=== PATIENT | male | born 1955 | race Caucasian/White ===

== ENCOUNTER → 2016-12-20 | Outpatient (CLI) | payer BC ==
[~2016-12-20] MED LIST: CLR10 PO; OMEP20CA59 PO
--- NOTE | 2016-12-27 11:36 | CODING QUERY MEDICAL NECESSITY ---
CQSUPPORTING DIAGNOSIS NEEDED A supporting diagnosis is required for the test/procedure performed on this patient in order for us to be reimbursed by the patient's insurance. Please provide a supporting diagnosis for the following test/procedure listed below next to the test name along with your signature. *If there is no additional diagnosis for this patient that would support the following test/procedure please document that below next to the test/procedure. Test(s)/Procedure(s) that require a supporting diagnosis: DOS 12/20/16 PROSTATE SPECIFIC TEST Provider Signature: Date: Thank you Maisha Gonzalez [employer] Information Management Once completed, please kindly fax back to [phone] For questions please call [phone]
== END | disposition home or self-care (01) ==
LOC: C.LAB 15:52
PROVIDERS: ATTEND Urology
DX: N52.9 Male erectile dysfunction, unspecified (principal); N40.1 Benign prostatic hyperplasia with lower urinary tract symptoms

== ENCOUNTER → 2017-05-26 | Outpatient (CLI) | payer BC ==
--- NOTE | 2017-06-15 12:50 | CODING QUERY NO DIAGNOSIS ---
TREATMENT RENDERED WITHOUT A DIAGNOSIS To promote full compliance with coding requirements relating to patient care, physician participation is requested in all cases of cooker pie filling uncertainty. Please assist us with providing a diagnosis/symptom for the test(s) below: A diagnosis/symptom was not documented on your Order. A valid diagnosis/symptom is required to bill all insurances. Please remember that we are unable to code a diagnosis of rule out, probable, possible, questionable, or suspected. Tests that require a diagnosis for date of service 05/26/17: * Left Maxilla Tissue Biopsy DIAGNOSIS: Provider Signature: Date: Thank you Deborah Becerra [employer] Once completed, please kindly fax back to [phone] For questions please call [phone]
== END | disposition home or self-care (01) ==
LOC: C.PATHSPEC 17:27
PROVIDERS: ATTEND Dentist Oral and Maxillofacial Surgery
DX: K04.8 Radicular cyst (principal)

== ENCOUNTER → 2017-07-28 | Outpatient (CLI) | payer OTHER ==
--- NOTE | 2017-07-28 08:53 | DIAGNOSTIC IMAGING REPORT ---
TWO VIEW CHEST CLINICAL HISTORY: Chest congestion. FINDINGS: PA and lateral chest radiographs are compared to study dated 12/20/2013. The cardiomediastinal silhouette is unremarkable. Chronic interstitial thickening is similar to previous. No airspace consolidation or pleural effusion is identified. There is no pneumothorax. The bony thorax appears intact. IMPRESSION: No active disease in the chest. Electronically signed by: Sinan Carias M.D. 07/28/2017 8:51 AM Dictated Date/Time: 07/28/2017 8:51 AM
== END | disposition home or self-care (01) ==
LOC: C.RAD 08:12
PROVIDERS: ATTEND Internal Medicine
DX: R05 Cough (principal); R09.89 Other specified symptoms and signs involving the circulatory and respiratory systems

== ENCOUNTER 2020-08-25 20:10 | Observation (INO) ==
[2020-08-25] MEDS ORDERED: ASPIRIN CHEW 324 MG PO STA (20:25)
--- NOTE | 2020-08-25 20:32 | Emergency Department Note ---
Impression & Plan Chest pain on exertion ED Provider Note NAME: ERICK SMITH AGE: 65 SEX: M : 1955 ARRIVES VIA: Walk-In INFORMANT: Patient, ED PROVIDER(S): Luis Souza DO CHIEF COMPLAINT: Chest pain HPI: The patient is a 65-year-old male who presented to the emergency department for an evaluation of chest pain. The patient describes left-sided chest pain which he describes as a pressure. He states the pain has been intermittent and started today. He states the pain is currently not present. He states at the time when he was having the pain he did have some shortness of breath. The patient states that his son is an emergency medicine physician and asked him to start walking up and down stairs. He stated initially he did not have any problems walking up and down stairs but started having chest discomfort on the left while he was ascending the stairs. He denies having any diaphoresis. He denies having any lower extremity swelling or pain. He denies having any cough. Throughout the day he was having the pain as well and thought it could be from reflux. His significant other gave him some antacids which did not significantly change the pain. ROS: See above HPI for pertinent positives & negatives. A total of 10 systems reviewed and were otherwise negative. PAST MEDICAL HISTORY: See Below PAST SURGICAL HISTORY: See Below FAMILY HISTORY: See Below SOCIAL HISTORY: See Below HOME MEDICATIONS: See Below ALLERGIES: See Below VITALS: See Below PHYSICAL EXAMINATION: GENERAL: Patient is awake alert in no acute distress patient is resting comfortably and showing no signs of anxiety EYES: The conjunctivae are clear. The pupils are round and reactive. EARS, NOSE, MOUTH AND THROAT: The nose is without any evidence of any deformity. NECK: The neck is nontender and supple. RESPIRATORY: Normal respiratory effort is noted there is no evidence of wheezing rhonchi or rales CARDIOVASCULAR: Regular rate and rhythm noted there no murmurs rubs or gallops normal S1 normal S2. GASTROINTESTINAL: The abdomen is soft. Abdomen is nontender. MUSCULOSKELETAL/EXTREMITIES: There is no evidence of gross deformity full range of motion is noted in the hips and shoulders. SKIN: There is no obvious evidence of any rash. There are no petechiae, pallor or cyanosis noted. NEUROLOGIC: Patient is awake alert and oriented x3. MEDICAL DECISION MAKING: The patient is a 65-year-old male who presented to the emergency department for an evaluation of chest pain. The patient has been having episodes of intermittent chest pain through the day. He started to notice the chest pain with exertion. I discussed the patient's laboratory and radiographic studies with him. I also discussed the limitations of the emergency department work-up for chest pain with him. Given the patient's exertional symptoms I do feel that he may be high risk. He was treated with aspirin in the emergency department. Because of the nature of his presentation I do feel he may require further inpatient management. For this reason I will discuss his case with the on-call [facility] hospitalist. Triage Nursing notes reviewed. Prior medical records reviewed Vital Signs: reviewed and remarkable for no significant abnormalities Differential diagnosis: Cardiac ischemia, aortic dissection, pulmonary embolism, pneumothorax, pneumonia, pericarditis, myocarditis, esophageal rupture, GERD, cholecystitis, pancreatitis, musculoskeletal, as well as other pathologies. ER treatment provided: See below Diagnostics interpreted by me: ECG: EKG was obtained in the emergency department. My interpretation is normal sinus rhythm at 80 bpm. There was no ectopy. There was no acute ST segment abnormalities noted. This was compared to a tracing from January 101993. No significant changes were noted. Cardiac Monitoring: An order was placed for continuous cardiac monitoring. The monitor shows a rate of 82 beats per with sinus rhythm. Laboratory studies: As stated above and show below. Imaging studies: See below [facility] They will evaluate the patient in the emergency department. Past Med/Surg History Medical History COVID-19 Erectile dysfunction H. pylori infection History of colon polyps Hyperlipidemia Surgical History History of colonoscopy History of tooth extraction S/P appendectomy Family History Mother Gastric cancer Family hx of colon cancer Father Dementia Other Breast cancer No family history of adverse response to anesthesia Social History Smoking Status: Never smoker Second Hand Exposure: No; Hx Alcohol Use: Yes (social) Alcohol type: beer and wine Hx Substance Use: No Preferred Language: Kyrgyz Communication Ability: Effective Color Developer Required: No Beliefs That Will Affect Care: None marital status: Current Living Situation: Spouse current occupational status: employed Feels Safe at Home: Yes Seatbelt Use: always Assistive Devices: None Allergies Allergies Allergy/AdvReac Type Severity Reaction Status Date / Time No Known Allergies Allergy Verified 08/25/20 21:48 Home Meds Home Medications Medication Instructions Recorded Confirmed cholecalciferol (vitamin D3) 1,000 unit PO QAM 12/07/19 08/25/20 [Vitamin D3] zinc 50 mg tablet 100 mg PO DAILY 07/25/20 08/25/20 ascorbic acid (vitamin C) 500 mg PO BID 08/25/20 08/25/20 omega-3 fatty acids [[place] 3 Fish 1,000 mg PO DAILY 08/25/20 08/25/20 Oil] Results & Data (ED) Vital Signs Vital Signs - 24 hr 08/25/20 20:15 08/25/20 20:57 08/25/20 21:00 Temperature 37.0 C Temperature Source Temporal Artery Scan Pulse Rate 88 80 74 Pulse Rate [Apical] 84 Pulse Rate from SpO2 Sensor 74 Respiratory Rate 18 20 23 Respiratory Effort / Characteristics Non-Labored Spontaneous Non-Labored Spontaneous Respiratory Depth Normal Normal Respiratory Pattern Regular Blood Pressure 114/60 114/71 Blood Pressure [Left Arm] 129/69 Blood Pressure Mean 78 85 Blood Pressure Mean [Left Arm] 89 Pulse Oximetry 95 94 96 Oxygen Delivery Method Room Air Room Air Sepsis Recent Fever Within 48 Hours No Sepsis New/Unexplained Change in Mental Status No Sepsis Action Taken by Nursing No Action Required 08/25/20 21:04 Temperature Temperature Source Pulse Rate 77 Pulse Rate [Apical] Pulse Rate from SpO2 Sensor 77 Respiratory Rate 17 Respiratory Effort / Characteristics Respiratory Depth Respiratory Pattern Blood Pressure Blood Pressure [Left Arm] Blood Pressure Mean Blood Pressure Mean [Left Arm] Pulse Oximetry 95 Oxygen Delivery Method Sepsis Recent Fever Within 48 Hours Sepsis New/Unexplained Change in Mental Status Sepsis Action Taken by [facility] Medications Current Medication List: was personally reviewed by me Laboratory Data Attestation: I reviewed the patient's lab results. Result diagrams: 08/25/20 20:52 08/25/20 20:52 Lab Results 08/25/20 08/25/20 08/25/20 Range/Units 20:52 20:52 20:52 WBC 5.37 (4.8-10.8) K/uL RBC 4.54 L (4.7-6.1) M/uL Hgb 14.0 (14.0-18.0) g/dL Hct 40.3 L (42-52) % MCV 88.8 (80-100) fL MCH 30.8 (25-34) pg MCHC 34.7 (32-36) g/dL RDW Std Deviation 42.3 (36.4-46.3) fL RDW Coeff of Jacob 13.1 (11.5-14.5) % Plt Count 256 (130-400) K/uL MPV 9.0 (7.4-10.4) fL Immature Gran % (Auto) 0.2 % Neut % (Auto) 60.8 % Lymph % (Auto) 28.7 % Jenkins % (Auto) 6.7 % Eos % (Auto) 3.4 % Baso % (Auto) 0.2 % Neut # (Auto) 3.27 (1.4-6.5) K/uL Lymph # (Auto) 1.54 (1.2-3.4) K/uL Jenkins # (Auto) 0.36 (0.11-0.59) K/uL Eos # (Auto) 0.18 (0-0.5) K/uL Baso # (Auto) 0.01 (0-0.2) K/uL Immature Gran # (Auto) 0.01 (0.00-0.02) K/uL PT 10.7 (9.0-12.0) Seconds INR 1.1 (0.9-1.1) APTT 25.9 (21.0-31.0) Seconds PTT Ratio 1.0 D-Dimer < 190 (0-500) ug/L FEU Sodium 139 (136-145) mmol/L Potassium 3.8 (3.5-5.1) mmol/L Chloride 105 (98-107) mmol/L Carbon Dioxide 26 (21-32) mmol/L Anion Gap 7.0 (3-11) BUN 15 (7-18) mg/dl Creatinine 1.07 (0.6-1.4) mg/dl Est Cr Clr Drug Dosing 76.7 ml/min Est GFR ( Amer) 85.2 Est GFR (Non-Af Amer) 73.5 BUN/Creatinine Ratio 13.7 (10-20) Glucose 104 H (70-99) mg/dl Calcium 8.7 (8.5-10.1) mg/dl Total Bilirubin 1.4 H (0.2-1) mg/dl AST 16 (15-37) U/L ALT 19 (12-78) U/L Alkaline Phosphatase 51 (45-117) U/L Troponin I < 0.015 (0-0.045) ng/ml Total Protein 7.2 (6.4-8.2) gm/dl Albumin 3.8 (3.4-5.0) gm/dl Globulin 3.4 (2.5-4.0) gm/dl Albumin/Globulin Ratio 1.1 (0.9-2) Lipase 151 (73-393) U/L Administered Medications Discontinued Medications Aspirin (Aspirin Chew 324 Mg) 324 mg PO NOW STA Stop: 08/25/20 20:26 Last Admin: 08/25/20 20:56 Dose: 324 mg Documented by: [id number] Imaging Data Radiologist's Impression: Patient: ERICK SMITH V Admit Date: 08/25/20 MR#: [id number] Address1: [address] [place] [address] Acct ID:[id number] Address2: Date: 1955 [facility] Zip: [place] [address] Age: 65 Location: ED Sex: M Room/Bed: Att Phy: Diagnosis: LEFT SIDE CHEST PAIN Jessika Phy: Luis Arias MD Service Date: 08/25/20 [facility] Phy: Interpreting Phy: Joel Crooks Admit Phy: Ordering Phy: Luis Souza DO cc: ~ XR chest 1V portable HISTORY: 65 years-old Male Chest Pain acute atypical chest pain COMPARISON: Chest radiograph 06/03/2020 TECHNIQUE: Portable AP view the chest FINDINGS: Cardiomediastinal and hilar silhouettes are within normal limits. No pneumothorax, pleural effusion, airspace consolidation or overt pulmonary edema. Bones of the chest appear grossly intact. IMPRESSION: No acute process. ACT 112: Negative or not required by law. The above report was generated using voice recognition software. It may contain grammatical, syntax or spelling errors. Electronically signed by: Asher Crooks M.D. 08/25/2020 8:51 PM Dictated: 08/25/202050 Transcribed: 08/25/202050 Discharge Plan Visit Data Chief Complaint: Chest Pain Stated Complaint: LEFT SIDE CHEST PAIN ED Provider: Luis Souza Discharge Problem: Chest pain on exertion Patient Disposition: Being Evaluated by Hospitalist Condition: Good Discharge Instructions Krames/Other Patient Handouts: 2019-nCoV Forms Stand Alone Forms: Nascentric Prescriptions Prescriptions: No Action zinc 50 mg tablet 100 mg PO DAILY RF: 0 cholecalciferol (vitamin D3) [Vitamin D3] 25 mcg (1,000 unit) Tablet 1,000 unit PO QAM RF: 0 [place] 3 Fish Oil Capsule 1,000 mg PO DAILY RF: 0 ascorbic acid (vitamin C) 500 mg Tablet 500 mg PO BID RF: 0 Referrals Referrals: Luis Arias MD [Primary Care Provider] -
--- NOTE | 2020-08-25 20:53 | XRay Report ---
XR chest 1V portable HISTORY: 65 years-old Male Chest Pain acute atypical chest pain COMPARISON: Chest radiograph 06/03/2020 TECHNIQUE: Portable AP view the chest FINDINGS: Cardiomediastinal and hilar silhouettes are within normal limits. No pneumothorax, pleural effusion, airspace consolidation or overt pulmonary edema. Bones of the chest appear grossly intact. IMPRESSION: No acute process. ACT 112: Negative or not required by law. The above report was generated using voice recognition software. It may contain grammatical, syntax o r spelling errors. Electronically signed by: Asher Crooks M.D. 08/25/2020 8:51 PM
[2020-08-25 21:03] LABS: Basophils # (auto) 0.01 K/uL (0-0.2); Basophils % (auto) 0.2 %; Eosinophils # (auto) 0.18 K/uL (0-0.5); Eosinophils % (auto) 3.4 %; Hematocrit (blood only) 40.3 % (42-52); Immature Granulocytes # (auto) 0.01 K/uL (0.00-0.02); Immature Granulocytes % (auto) 0.2 %; Lymphocytes # (auto) 1.54 K/uL (1.2-3.4); Lymphocytes % (auto) 28.7 %; Mean Corpuscular Hemoglobin 30.8 pg (25-34); Mean Corpuscular Hgb Conc 34.7 g/dL (32-36); Mean Corpuscular Volume 88.8 fL (80-100); Monocytes # (auto) 0.36 K/uL (0.11-0.59); Monocytes % (auto) 6.7 %; Neutrophils # (auto) 3.27 K/uL (1.4-6.5); Neutrophils % (auto) 60.8 %; Platelet Count 256 K/uL (130-400); RDW Coefficient of Variation 13.1 % (11.5-14.5); RDW Standard Deviation 42.3 fL (36.4-46.3); Red Blood Count 4.54 M/uL (4.7-6.1); White Blood Count 5.37 K/uL (4.8-10.8)
[2020-08-25 21:12] LABS: D Dimer < 190 ug/L FEU (0-500); INR 1.1 (0.9-1.1); Partial Thromboplastin Time 25.9 Seconds (21.0-31.0); Prothrombin Time 10.7 Seconds (9.0-12.0)
[2020-08-25 21:18] LABS: Alanine Aminotransferase 19 U/L (12-78); Albumin Level 3.8 gm/dl (3.4-5.0); Aspartate Aminotransferase 16 U/L (15-37); BUN Creatinine Ratio 13.7 (10-20); Blood Urea Nitrogen 15 mg/dl (7-18); Calcium 8.7 mg/dl (8.5-10.1); Carbon Dioxide 26 mmol/L (21-32); Chloride 105 mmol/L (98-107); Creatinine Clr Calc Pharmacy 76.7 ml/min; Est GFR (African American) 85.2; Est GFR (Non-African American) 73.5; Glucose 104 mg/dl (70-99); Lipase 151 U/L (73-393); Potassium 3.8 mmol/L (3.5-5.1); Sodium 139 mmol/L (136-145)
[2020-08-25 21:23] LABS: Albumin Globulin Ratio 1.1 (0.9-2); Alkaline Phosphatase 51 U/L (45-117); Bilirubin,Total 1.4 mg/dl (0.2-1); Globulin 3.4 gm/dl (2.5-4.0); Total Protein 7.2 gm/dl (6.4-8.2); Troponin I < 0.015 ng/ml (0-0.045)
--- NOTE | 2020-08-25 22:41 | History & Physical Report ---
Date of Service August 25, 2020 Assessment & Plan (1) Chest pain on exertion: The patient will be admitted to telemetry for serial cardiac enzymes, serial EKG's, cardiac rhythm monitoring and a 2-D echocardiogram with Dopplers. If the above work-up is negative, the patient should have a stress echocardiogram prior to discharge. His cholesterol and diabetes testing had been performed regularly outpatient setting and the been normal Present on Admission?: Yes (2) Psychophysiologic insomnia: If necessary, will add melatonin as needed Present on Admission?: Yes (3) BPH (benign prostatic hyperplasia): Patient is not having any acute symptoms at this time. Present on Admission?: Yes History of Present Illness Chief Complaint: The patient presents to the emergency department with left parasternal chest pain that began earlier in the day, and occurred while he was eating this evening and when asked to walk up his stairs by his son. Primary Care Provider: Luis Arias MD The patient is a 65-year-old male with a past medical history including erectile dysfunction, psychophysiologic insomnia, allergic rhinitis, BPH and seborrheic dermatitis. Patient has undergone stress test in the past, most recently was more than 10 years ago. He was in his usual state of health until earlier in the day when he developed left parasternal chest discomfort, and when it recurred later on today while eating, he was asked to walk up steps, and when this recurred, he was advised to come to the ED for assessment. He denies any recent change in physical activities or dietary habits. He denies any recent travels. He did have Covid 19 infection in May, and feels that he has not really gotten back to his usual energy level from that perspective Allergies Allergy/AdvReac Type Severity Reaction Status Date / Time No Known Allergies Allergy Verified 08/25/20 21:48 Home Medications Medication Instructions Recorded Confirmed Type cholecalciferol (vitamin D3) 1,000 unit PO QAM 12/07/19 08/25/20 History [Vitamin D3] zinc 50 mg tablet 100 mg PO DAILY 07/25/20 08/25/20 History ascorbic acid (vitamin C) 500 mg PO BID 08/25/20 08/25/20 History omega-3 fatty acids [[place] 3 Fish 1,000 mg PO DAILY 08/25/20 08/25/20 History Oil] Past Med/Surg History Medical History COVID-19 Erectile dysfunction H. pylori infection History of colon polyps Hyperlipidemia Surgical History History of colonoscopy History of tooth extraction S/P appendectomy Family History Mother Gastric cancer Family hx of colon cancer Father Dementia Other Breast cancer No family history of adverse response to anesthesia Social History Smoking Status: Never smoker Second Hand Exposure: No; Hx Alcohol Use: Yes Alcohol type: beer and wine Hx Substance Use: No Preferred Language: Kazakh Communication Ability: Effective Deputy Chief Counsel Required: No Beliefs That Will Affect Care: None marital status: Current Living Situation: Spouse current occupational status: employed Feels Safe at Home: Yes Seatbelt Use: always Assistive Devices: None Review of Systems Review of Systems: The patient denies palpitations, cough, lower extremity swelling, sore throat, fevers, chills, sweats, nausea, vomiting, diarrhea , constipation, abdominal pain, pelvic pain, blood in urine or stool, dysuria, urinary frequency or urgency, lightheadedness, dizziness, headache, memory loss, loss of consciousness, rash, abnormal bruising or bleeding, imbalance, focal or generalized weakness, numbness or tingling in arms or legs, generalized arthralgias or myalgias, back or neck pain, or night sweats. The review of systems is otherwise negative other than for that already noted above, and at least 10 systems have been reviewed. Physical Exam Physical Exam: The patient is awake, alert and oriented 3, well developed and well nourished, normocephalic and atraumatic, lying in bed and in no acute distress. HEENT--PERRL, EOMI, mucous membranes and oropharynx normal. Neck--supple. No JVD. No bruits. Thyroid normal, trachea midline, no adenopathy. Heart--normal S1 and S2. No murmurs, rubs or gallops. Lungs--clear bilaterally, no respiratory distress, no accessory muscle use. Abdomen--normal bowel sounds and soft. Nontender. Nondistended, no hernias or masses, no organomegaly. Extremities--no cyanosis or clubbing. No edema. Dermatologic--normal skin turgor, normal color, no abnormal lymph nodes, no rash. Neurologic--cranial nerves II through XII grossly intact. Rheumatologic--normal range of motion. Psychiatric--normal affect. Results & Data Results & Data ([facility]) Vital Signs (Past 12 Hours) Vital Signs Temp Pulse Pulse Resp BP BP Pulse Ox 08/25/20 22:00 79 19 123/74 96 08/25/20 21:30 74 20 122/77 96 08/25/20 21:04 77 17 95 08/25/20 21:00 74 23 114/71 96 08/25/20 20:57 80 84 20 129/69 94 08/25/20 20:15 98.6 F 88 18 114/60 95 Laboratory Results Laboratory Results WBC 5.37 K/uL (4.8-10.8) 08/25/20 20:52 RBC 4.54 M/uL (4.7-6.1) L 08/25/20 20:52 Hgb 14.0 g/dL (14.0-18.0) 08/25/20 20:52 Hct 40.3 % (42-52) L 08/25/20 20:52 MCV 88.8 fL (80-100) 08/25/20 20:52 MCH 30.8 pg (25-34) 08/25/20 20:52 MCHC 34.7 g/dL (32-36) 08/25/20 20:52 RDW Std Deviation 42.3 fL (36.4-46.3) 08/25/20 20:52 RDW Coeff of Jacob 13.1 % (11.5-14.5) 08/25/20 20:52 Plt Count 256 K/uL (130-400) 08/25/20 20:52 MPV 9.0 fL (7.4-10.4) 08/25/20 20:52 Immature Gran % (Auto) 0.2 % 08/25/20 20:52 Neut % (Auto) 60.8 % 08/25/20 20:52 Lymph % (Auto) 28.7 % 08/25/20 20:52 Bradford % (Auto) 6.7 % 08/25/20 20:52 Eos % (Auto) 3.4 % 08/25/20 20:52 Baso % (Auto) 0.2 % 08/25/20 20:52 Neut # (Auto) 3.27 K/uL (1.4-6.5) 08/25/20 20:52 Lymph # (Auto) 1.54 K/uL (1.2-3.4) 08/25/20 20:52 Bradford # (Auto) 0.36 K/uL (0.11-0.59) 08/25/20 20:52 Eos # (Auto) 0.18 K/uL (0-0.5) 08/25/20 20:52 Baso # (Auto) 0.01 K/uL (0-0.2) 08/25/20 20:52 Immature Gran # (Auto) 0.01 K/uL (0.00-0.02) 08/25/20 20:52 PT 10.7 Seconds (9.0-12.0) 08/25/20 20:52 INR 1.1 (0.9-1.1) 08/25/20 20:52 APTT 25.9 Seconds (21.0-31.0) 08/25/20 20: PTT Ratio 1.0 08/25/20 20:52 D-Dimer < 190 ug/L FEU (0-500) 08/25/20 20:52 Sodium 139 mmol/L (136-145) 08/25/20 20:52 Potassium 3.8 mmol/L (3.5-5.1) 08/25/20 20:52 Chloride 105 mmol/L (98-107) 08/25/20 20:52 Carbon Dioxide 26 mmol/L (21-32) 08/25/20 20:52 Anion Gap 7.0 (3-11) 08/25/20 20:52 BUN 15 mg/dl (7-18) 08/25/20 20:52 Creatinine 1.07 mg/dl (0.6-1.4) 08/25/20 20:52 Est Cr Clr Drug Dosing 76.7 ml/min 08/25/20 20:52 Est GFR ( Amer) 85.2 08/25/20 20:52 Est GFR (Non-Af Amer) 73.5 08/25/20 20:52 BUN/Creatinine Ratio 13.7 (10-20) 08/25/20 20:52 Glucose 104 mg/dl (70-99) H 08/25/20 20:52 Calcium 8.7 mg/dl (8.5-10.1) 08/25/20 20:52 Total Bilirubin 1.4 mg/dl (0.2-1) H 08/25/20 20:52 AST 16 U/L (15-37) 08/25/20 20:52 ALT 19 U/L (12-78) 08/25/20 20:52 Alkaline Phosphatase 51 U/L (45-117) 08/25/20 20:52 Troponin I < 0.015 ng/ml (0-0.045) 08/25/20 20:52 Total Protein 7.2 gm/dl (6.4-8.2) 08/25/20 20:52 Albumin 3.8 gm/dl (3.4-5.0) 08/25/20 20:52 Globulin 3.4 gm/dl (2.5-4.0) 08/25/20 20:52 Albumin/Globulin Ratio 1.1 (0.9-2) 08/25/20 20:52 Lipase 151 U/L (73-393) 08/25/20 20:52 COVID-19 Eval Order CovFluRsv at [facility] 08/25/20 21:52 SARS-CoV-2 (PCR) NEGATIVE (Negative) 08/25/20 21:52 Influenza Type A (PCR) Negative (Neg) 08/25/20 21:52 Influenza Type B (PCR) Negative (Neg) 08/25/20 21:52 RSV (RT-PCR) Negative (Neg) 08/25/20 21:52 Diagnostic Findings [facility], [id number] XRay Report Patient: ERICK SMITH VAdmit Date: 08/25/20MR#: [id number] [facility] Acct ID:[id number]: Date: 1955City Zip: [place], [place] [address]Kfw: 65Location: EDSex: MRoom/Bed:Att Phy:Diagnosis: LEFT SIDE CHEST PAINPri Phy: Luis Arias, MDService Date: 08/25/20Fam Phy:Interpreting Phy: Joel CrooksAdmit Phy: Ordering Phy: Luis Souza DO cc: ~ XR chest 1V portable HISTORY: 65 years-old Male Chest Pain acute atypical chest pain COMPARISON: Chest radiograph 06/03/2020 TECHNIQUE: Portable AP view the chest FINDINGS: Cardiomediastinal and hilar silhouettes are within normal limits. No pneumothorax, pleural effusion, airspace consolidation or overt pulmonary edema. Bones of the chest appear grossly intact. IMPRESSION: No acute process. ACT 112: Negative or not required by law. The above report was generated using voice recognition software. It may contain grammatical, syntax or spelling errors. Electronically signed by: Asher Crooks M.D. 08/25/2020 8:51 PM Dictated: 08/25/202050Transcribed: 08/25/202050 Code Status & VTE Plan Code Status Full code VTE Prophylaxis Plan VTE Prophylaxis will be ordered: Yes PG Care Time/CCT Total # of Minutes Spent Total Time Spent with Patient: Total time spent is greater than 50% in coordination of care (as documented) at patient's floor/unit and/or counseling patient: Coding Level of Care Code 43517 OBS Care - Level 3 Diagnoses Chest pain on exertion R07.9 Psychophysiologic insomnia F51.04 BPH (benign prostatic hyperplasia) N40.0
[2020-08-25 23:06] LABS: Influenza A virus by PCR Negative (Neg); Influenza B virus by PCR Negative (Neg); RSV by PCR Negative (Neg); SARS CoV2 RNA(COVID-19) InHosp NEGATIVE (Negative)
[2020-08-26] MEDS ORDERED: ONDANSETRON INJ 2 MG/ML 2 ML VIAL IV PRN (00:23)
[2020-08-26] MEDS ORDERED: ACETAMINOPHEN 325 MG TAB PO PRN (00:23)
[2020-08-26] MEDS: ASCORBIC ACID 500 MG TAB PO SCH ×2 (02:58→07:40)
[2020-08-26 06:19] LABS: Basophils # (auto) 0.02 K/uL (0-0.2); Basophils % (auto) 0.4 %; Eosinophils # (auto) 0.34 K/uL (0-0.5); Eosinophils % (auto) 7.1 %; Hematocrit (blood only) 41.3 % (42-52); Hemoglobin 14.2 g/dL (14.0-18.0); Lymphocytes # (auto) 1.76 K/uL (1.2-3.4); Mean Corpuscular Hemoglobin 30.7 pg (25-34); Mean Corpuscular Hgb Conc 34.4 g/dL (32-36); Mean Corpuscular Volume 89.4 fL (80-100); Mean Platelet Volume 9.2 fL (7.4-10.4); Monocytes # (auto) 0.34 K/uL (0.11-0.59); Monocytes % (auto) 7.1 %; Neutrophils % (auto) 48.4 %; Platelet Count 247 K/uL (130-400); RDW Coefficient of Variation 13.2 % (11.5-14.5); RDW Standard Deviation 42.9 fL (36.4-46.3); Red Blood Count 4.62 M/uL (4.7-6.1); White Blood Count 4.76 K/uL (4.8-10.8)
[2020-08-26 06:40] LABS: Alanine Aminotransferase 17 U/L (12-78); Albumin Level 3.5 gm/dl (3.4-5.0); Aspartate Aminotransferase 14 U/L (15-37); BUN Creatinine Ratio 16.4 (10-20); Blood Urea Nitrogen 14 mg/dl (7-18); Carbon Dioxide 24 mmol/L (21-32); Chloride 109 mmol/L (98-107); Creatinine Clr Calc Pharmacy 87.6 ml/min; Est GFR (Non-African American) 92.3; Glucose 84 mg/dl (70-99); Potassium 3.8 mmol/L (3.5-5.1); Sodium 139 mmol/L (136-145)
[2020-08-26 06:45] LABS: Albumin Globulin Ratio 1.1 (0.9-2); Alkaline Phosphatase 49 U/L (45-117); Bilirubin,Total 1.2 mg/dl (0.2-1); Globulin 3.3 gm/dl (2.5-4.0); Total Protein 6.8 gm/dl (6.4-8.2); Troponin I < 0.015 ng/ml (0-0.045)
[2020-08-26] MEDS ORDERED: CHOLECALCIFEROL 1,000 UNITS 25 MCG TAB PO SCH (09:00)
[2020-08-26] MEDS ORDERED: OMEGA-3 (PURIFIED FISH OIL) 1 GM CAP PO SCH (09:00)
[2020-08-26] MEDS ORDERED: ZINC SULFATE 220 MG CAPSULE PO SCH (09:00)
[2020-08-26] MEDS ORDERED: ASPIRIN 81 MG ECTAB PO SCH (09:00)
--- NOTE | 2020-08-26 14:15 | XCELERA ---
[id number]
--- NOTE | 2020-08-26 14:28 | Electrocardiogram Report ---
Test Reason : Blood Pressure : / mmHG Vent. Rate : 080 BPM Atrial Rate : 080 BPM P-R Int : 126 ms QRS Dur : 086 ms QT Int : 386 ms P-R-T Axes : 069 072 045 degrees QTc Int : 445 ms Poor data quality, interpretation may be adversely affected Normal sinus rhythm Normal ECG When compared with ECG of 10-JAN-1994 22:52, No significant change was found Confirmed by Adrian Willingham ([id number]) on 08/26/2020 2:27:51 PM Referred By: REFERRED SELF Confirmed By:Vazquez Willingham
--- NOTE | 2020-08-26 14:35 | Electrocardiogram Report ---
Test Reason : Blood Pressure : / mmHG Vent. Rate : 064 BPM Atrial Rate : 064 BPM P-R Int : 124 ms QRS Dur : 090 ms QT Int : 418 ms P-R-T Axes : 090 084 060 degrees QTc Int : 431 ms Normal sinus rhythm with sinus arrhythmia Minimal voltage criteria for LVH, may be normal variant Borderline ECG When compared with ECG of 25-AUG-2020 20:21, (unconfirmed) No significant change was found Confirmed by Adrian Willingham ([id number]) on 08/26/2020 2:34:43 PM Referred By: REFERRED SELF Confirmed By:Vazquez Willingham
--- NOTE | 2020-08-26 18:12 | Discharge Summary ---
Date of Service August 26, 2020 Admission HPI Per Admitting Provider The patient is a 65-year-old male with a past medical history including erectile dysfunction, psychophysiologic insomnia, allergic rhinitis, BPH and seborrheic dermatitis. Patient has undergone stress test in the past, most recently was more than 10 years ago. He was in his usual state of health until earlier in the day when he developed left parasternal chest discomfort, and when it recurred later on today while eating, he was asked to walk up steps, and when this recurred, he was advised to come to the ED for assessment. He denies any recent change in physical activities or dietary habits. He denies any recent travels. He did have Covid 19 infection in May, and feels that he has not really gotten back to his usual energy level from that perspective Principal Diagnosis Chest pain - Likely GERD or musculoskeletal pain Discharge Exam Constitutional WD/WN, vitals as above Eyes EOM intact bilaterally; no conjunctival abnormality ENMT external ear and nose normal, oropharynx normal Neck trachea midline, no thyromegaly normal visual inspection Respiratory normal respiratory effort, lungs clear to auscultation no respiratory distress Cardiovascular RRR, no murmur, no edema Gastrointestinal (Abdomen) Inspection/Auscultation: abdomen normal to inspection; abdomen not distended Musculoskeletal no cyanosis or clubbing, extremities motor strength 5/5 Skin no rashes, warm and dry Neurologic moves all extremities and awake Psychiatric Orientation: alert, oriented to person and cooperative Discharge Data Allergies Allergy/AdvReac Type Severity Reaction Status Date / Time No Known Allergies Allergy Verified 08/25/20 21:48 Hospital Course (1) Chest pain on exertion: Troponins were negative x 2 over course of >12 hours. - Stress echocardiogram was performed which was normal. Of note, he had a report of mild hypokinesis and EF 50 - 55%; however, this might have just been the cut of the echo. Dr. Willingham reported terrific exercise tolerance and response and felt this was a clearly negative stress test. - He was encouraged to return to normal work-up routine. - Follow up with Dr. Arias regarding ASA and statin. ASCD 10-year risk is 10.4% which can be lowered to 7.5% with risk-factor modification. (2) Psychophysiologic insomnia: If necessary, will add melatonin as needed. (3) BPH (benign prostatic hyperplasia): Patient is not having any acute symptoms at this time. Total Time Total Time Spent Total Time Spent (In Minutes): 35 Discharge Plan Discharge Items Patient Disposition: Home - Self-Care Reason For Visit: CHEST PAIN Discharge Diagnosis: Chest pain - Likely not cardiac in nature Condition on Discharge: Good Activity: Resume your previous activity Non-emergency contact: Primary Care Provider Call non-emergency contact if: your symptoms worsen Follow-up/Referrals: Luis Arias MD [Primary Care Provider] - 09/02/20 2:15 pm (THIS APPOINTMENT WILL BE WITH ADAM LO) Diet: Heart Healthy Addtl Attending Provider Instructions: Mr. Barrett, You were admitted to the hospital with chest pain. We ran a series of labs called "troponins" which can test for heart damage. Luckily, these were all negative or normal. This is great! This means you did not have a heart attack. We were worried about your heart, so we did a stress test. The stress includes an echocardiogram (an ultrasound of your heart) at rest and then after exertion along with monitoring your EKG. Overall, the stress test looked very good. I do not see any concerning signs for your heart. Using your cholesterol values from November 2019, your 10-year risk of any cardiac issues is 10.4%. The [employer] would recommend an in termediate dose statin for you. A baby dose aspirin (81 mg) is a tough call. Increasingly, we are finding there are both pros & cons for people without any known heart disease. If you have any history of ulcers or stomach problems, the risks may be bigger than the benefits. Please follow up with Dr. Arias in the next week or two to be sure you're doing well and to discuss the options for a statin and the aspirin. Pending Studies at Discharge: No Stand-Alone Forms: [employer], Smoking Cessation Medications and DC Order Prescriptions: Continued zinc 50 mg tablet 100 mg PO DAILY RF: 0 cholecalciferol (vitamin D3) [Vitamin D3] 25 mcg (1,000 unit) Tablet 1,000 unit PO QAM RF: 0 omega-3 fatty acids Capsule 1,000 mg PO DAILY RF: 0 ascorbic acid (vitamin C) 500 mg Tablet 500 mg PO BID RF: 0 Discharge Orders: Discharge Order (Routine); Ordered 08/26/20 Ordered By: Fred Contreras Admission Data Admit Date/Time: 08/25/20 22:40 Attending Provider: Fred Contreras Admit Provider: Bryce Alejandro Primary Care Provider: Luis Arias Other Interventions: Discharge Summary Assessment (RN) Last Done: 08/26/20 15:09 Coding Level of Care Code 44717 OBS Care - Discharge Diagnoses Chest pain on exertion R07.9 Psychophysiologic insomnia F51.04 BPH (benign prostatic hyperplasia) N40.0
== END 2020-08-26 15:28 | disposition home or self-care (01) ==
LOC: ED 20:10 → 2N 20:10 → SUATTDRO 22:40 → 2N 23:54